=== PATIENT | male | born 1950 | race Caucasian/White ===

== ENCOUNTER 2020-08-26 17:48 | Emergency (ER) | payer OTHER, MEDICAID ==
[~2020-08-26] VITALS: Ht 188 cm; Wt 79.4 kg
[2020-08-26 18:29] LABS: ABSOLUTE NEUTROPHILS 8.8 thou/uL (1.4-8.2); BASOPHILS 1.3 % (0.0-2.0); EOSINOPHILS 0.1 % (0.0-3.0); HEMATOCRIT 33.8 % (42.0-52.0); HEMOGLOBIN 11.9 gm/dL (14.0-18.0); LYMPHOCYTES 11.8 % (24.0-44.0); MCH 33.9 pg (26.0-34.0); MCV 96.7 fL (80.0-100.0); MONOCYTES 7.3 % (1.0-8.0); PLATELET COUNT 460 thou/uL (150-400); POLYS 79.5 % (36.0-66.0); RDW 13.7 % (10.5-14.5)
[2020-08-26 18:44] LABS: ANION GAP 10 mmol/L (7-16); BUN 24 mg/dL (7-18); CALCIUM 8.9 mg/dL (8.5-10.1); CHLORIDE 99 mmol/L (98-107); CO2 23 mmol/L (21-32); CREATININE 0.9 mg/dL (0.7-1.3); GLUCOSE 100 mg/dL (74-106); POTASSIUM 4.9 mmol/L (3.5-5.1); SALICYLATE < 2.8 mg/dL (2.8-20.0); SODIUM 132 mmol/L (136-145)
[2020-08-26 18:51] LABS: AMP/METHAMP Negative (Negative); BARBITURATES Negative (Negative); BENZODIAZEPINES Negative (Negative); COCAINE Negative (Negative); METHADONE Negative (Negative); OPIATES Negative (Negative); PCP Negative (Negative)
[2020-08-26] MEDS ORDERED: ASA81BEC PO (21:37)
[2020-08-26] MEDS ORDERED: ATHENOL325 MG PO (21:38)
[2020-08-26] MEDS ORDERED: BIOFREEZE118 ML TOP (21:40)
[2020-08-26] MEDS ORDERED: DECADRON6 MG PO (21:42)
[2020-08-26] MEDS ORDERED: FOLIC ACID1 MG PO (21:43)
[2020-08-26] MEDS ORDERED: ENSURE113 GM PO (21:43)
[2020-08-26] MEDS ORDERED: PRINIVIL20 M1 PO (21:43)
[2020-08-26] MEDS ORDERED: DIVALPROEX SOD125 M1 PO (21:43)
[2020-08-26] MEDS ORDERED: MELATONIN10 M3 PO (21:44)
[2020-08-26] MEDS ORDERED: LORAZEPAM 1 MG T1 MG PO (21:44)
[2020-08-26] MEDS ORDERED: LORATIDINE 10 M10 M1 PO (21:44)
[2020-08-26] MEDS ORDERED: SEROQUEL 25 MG25 MG PO (21:45)
[2020-08-26] MEDS ORDERED: TRAZODONE HCL50 MG PO (21:45)
[2020-08-26] MEDS ORDERED: SERTRALINE HCL100 MG PO (21:45)
[2020-08-26] MEDS ORDERED: SUPER THERAVIT1 EACH PO (21:45)
[2020-08-26 21:46] VITALS: BP 134/98
[2020-08-26] MEDS ORDERED: TYLENOL325 M1 PO (21:46)
[2020-08-26] MEDS ORDERED: VITAMIN B-1100 M2 PO (21:46)
== END 2020-08-26 21:43 | disposition still patient (30) ==
LOC: ER 17:48
PROVIDERS: Nurse Practitioner
DX: R41.82 Altered mental status, unspecified (principal); Z79.82 Long term (current) use of aspirin; Z79.899 Other long term (current) drug therapy; Z20.828 Contact with and (suspected) exposure to other viral communicable diseases